=== PATIENT | male | born 1975 | race Caucasian/White ===

== ENCOUNTER → 2016-07-28 | Outpatient (CLI) | payer OTHER ==
[~2016-07-28] MED LIST: CITA20TA4 PO; ZNTT/150 PO
--- NOTE | 2016-07-28 10:44 | DIAGNOSTIC IMAGING REPORT ---
GI SERIES W/AIR ROUTINE CLINICAL HISTORY: Gastroesophageal reflux disease. COMPARISON STUDY: CT of the abdomen and pelvis July 07, 2014. FLUOROSCOPY TIME: 1.7 minutes. FINDINGS: 21 fluoroscopic images were obtained. Esophageal motility was normal. No esophageal mass or stricture was identified. Gastric fold pattern was normal. No hiatal hernia was identified. No gastroesophageal reflux was elicited. Duodenal fold pattern was normal. Ligament of Treitz was normal position. There are cholecystectomy clips. IMPRESSION: Unremarkable double contrast upper GI series. Electronically signed by: Josias Freedman M.D. 07/28/2016 10:43 AM Dictated Date/Time: 07/28/2016 10:39 AM
== END | disposition home or self-care (01) ==
LOC: C.RAD 10:01
PROVIDERS: ATTEND Internal Medicine
DX: K21.9 Gastro-esophageal reflux disease without esophagitis (principal)